=== PATIENT | male | born 1965 | race Native Hawaiian/Other Pacific Islander ===

== ENCOUNTER 2020-10-27 13:27 | Outpatient (CLI) | payer OTHER ==
[~2020-10-27] VITALS: Ht 185.4 cm; Wt 180.1 kg
== END 2020-10-27 19:40 | disposition home or self-care (01) ==
LOC: INF 13:27
PROVIDERS: ATTEND Family Medicine
DX: Z23 Encounter for immunization (principal); U07.1 COVID-19; Z03.89 Encounter for observation for other suspected diseases and conditions ruled out
CPT/HCPCS: 96365; M0244